=== PATIENT | female | born 2000 | race African-American/Black ===

== ENCOUNTER 2020-02-03 11:52 | Emergency (ER) | payer OTHER ==
[~2020-02-03] VITALS: Ht 165.1 cm; Wt 65.8 kg
[2020-02-03] MEDS ORDERED: CELEXA 20 MG TA20 MG PO (12:02)
[2020-02-03 12:32] VITALS: BP 123/76
--- NOTE | 2020-02-04 17:30 | EKG ---
[place] [address] ELECTROCARDIOGRAM REPORT Name: AUGUSTUS PAT Room: [facility]#: [id number] Admission: 02/03/20 Attend Phys: Discharge: 02/03/20 Date of : 89 Date of Service: 02/03/20 1206 Report #: [id number] THIS REPORT FOR: //name// [facility] ED Test Date: 2020-02-03 Test Time: 12:06:57 Pat Name: AUGUSTUS PAT Department: Room: Gender: F Restaurant Hostess: CCD : 2000 Requested By: Claudio Shaw Order Number: [id number] MD: Reilly Medina Measurements Intervals [place] Rate: 80 P: 73 NV: 132 QRS: 95 QRSD: 94 T: 57 QT: 372 QTc: 430 Interpretive Statements Sinus rhythm Borderline right axis deviation No previous ECG available for comparison Electronically Signed On 02-04-2020 17:30:13 CDT by Reilly Medina [email or web address] <ELECTRONICALLY SIGNED> By: Reilly Medina MD, [facility] 02/04/20 1730 D: 08/1205 120 Reilly Medina MD, FACC /EPI
== END 2020-02-03 12:34 | disposition home or self-care (01) ==
LOC: M.ERS 11:52
DX: R55 Syncope and collapse (principal)